=== PATIENT | male | born 1995 ===

== ENCOUNTER 2019-05-13 22:17 | Emergency (ER) | payer OTHER ==
[2019-05-14] MEDS ORDERED: predniSONE TAB* 20 MG PO ONE (02:04)
--- NOTE | 2019-05-14 02:07 | ED ---
Throat Pain/Nasal Congestion - HPI Summary HPI Summary: The patient is a 24 y/o M presenting to [facility] with a chief complaint of gradually worsening throat pain over the last week. He reports that he was seen at [facility], where he had a negative strep test but was given Ibuprofen. He has been taking the Ibuprofen, but he believes that is has been making his symptoms worse. He has also taken Mucinex and Chloroseptic to no relief. Today, he coughed, and there was blood in the phlegm, but he rinsed it with warm water , which seemed to help. He additionally c/o dysphagia. He denies fever. Currently, his symptoms are rated 1/10 in severity. No PMHx. Nonsmoker, rare EtOH, no substance use. Medications reviewed. Allergies noted. - History of Current Complaint Chief Complaint: EDThroatPain Time Seen by Provider: 05/14/19 01:59 Hx Obtained From: Patient Onset/Duration: Gradual Onset, Lasting Days - one week, Still Present Severity: Moderate Associated Signs And Symptoms: Positive: Dysphagia Cough: Other: - an episode of cough with blood - Allergies/Home Medications Allergies/Adverse Reactions: Allergies Allergy/AdvReac Type Severity Reaction Status Date / Time bacitracin Allergy Blisters Verified 05/13/19 22:25 [From Neosporin ([id number])] doxycycline Allergy Rash Verified 05/13/19 22:25 neomycin Allergy Blisters Verified 05/13/19 22:25 [From Neosporin ([id number])] polymyxin B Allergy Blisters Verified 05/13/19 22:25 [From Neosporin ([id number])] PMH/Surg Hx/FS Hx/Imm Hx Endocrine/Hematology History: Denies: Hx Diabetes Respiratory History: Denies: Hx Asthma Sensory History: Denies: Hx Legally Blind, Hx Deafness Opthamlomology History: Denies: Hx Legally Blind EENT History: Denies: Hx Deafness - Surgical History Surgical History: None Surgery Procedure, Year, and Place: none Infectious Disease History: No Infectious Disease History: Denies: Traveled Outside the [place] in Last 30 Days - Family History Known Family History: Negative: Renal Disease, Respiratory Disease - Social History Alcohol Use: Rare Hx Substance Use: No Substance Use Type: Reports: None Hx Tobacco Use: No Smoking Status (MU): Never Smoked Tobacco Review of Systems Negative: Fever Positive: Sore Throat, Other - dysphagia Positive: Cough - with blood Positive: Abdominal Pain All Other Systems Reviewed And Are Negative: Yes Physical Exam - Summary Physical Exam Summary: Appearance: Well-appearing, Well-nourished, lying in bed comfortably Skin: Warm, dry, no obvious rash Eyes: sclera anicteric, no conjunctival pallor ENT: mucous membranes moist, voice slightly muffled, marked bilateral and symmetric swelling of the tonsils, not quite "kissing" but quite swollen, does not have the appearance of peritonsillar abscess. Neck: Supple, nontender Respiratory: Clear to auscultation, no signs of respiratory distress or stridor Cardiovascular: Normal S1, S2. No murmurs. Normal distal pulses in tibial and radial bilaterally. Abdomen: Soft, nontender, normal active bowel sounds present Musculoskeletal: Normal, Strength/ROM Intact Neurological: A&Ox3, awake and alert, mentation is normal, speech is fluent and appropriate Psychiatric: affect is normal, does not appear anxious or depressed Triage Information Reviewed: Yes Vital Signs On Initial Exam: Initial Vitals Temp Pulse Resp BP Pulse Ox 98.5 F 131 18 136/90 98 05/13/19 22:22 05/13/19 22:22 05/13/19 22:22 05/13/19 22:22 05/13/19 22:22 Vital Signs Reviewed: Yes Diagnostics - Vital Signs Vital Signs Temp Pulse Resp BP Pulse Ox 05/13/19 22:22 98.5 F 131 18 136/90 98 - Laboratory Lab Results: Lab Results 05/14/19 Range/Units 00:08 Monoscreen Negative (Negative) Lab Statement: Any lab studies that have been ordered have been reviewed, and results considered in the medical decision making process. EENT Course/Dx - Course Course Of Treatment: Pt is a 24 y/o M with cc of gradually worsening sore throat accompanied by dysphagia and an episode of cough with blood today. Negative strep test at [facility] a few days ago. Upon physical exam, the pt exhibits a slightly muffled voice with marked bilateral and symmetric swelling of the tonsils. Monoscreen is negative. Kamilla calhoun ordered. Rapid strep is negative. In the ED course, the pt is administered first dose of course of Prednisone and Augmentin. We discussed plan for discharge with rx for Augmentin and Prednisone and follow up with Dr. Higginbotham. He understands and agrees with plan. Dx is pharyngitis. - Diagnoses Provider Diagnoses: Pharyngitis Discharge ED - Sign-Out/Discharge Documenting (check all that apply): Patient Departure - Patient will be discharged home. Patient Received Moderate/Deep Sedation with Procedure: No - Discharge Plan Condition: Good Disposition: HOME Prescriptions: Amoxicillin/Clavulanate TAB* [Augmentin TAB 875*] 875 mg PO BID #20 tab predniSONE TAB* [Deltasone 20 MG TAB*] 40 mg PO DAILY 5 Days #10 tab Patient Education Materials: Pharyngitis (ED) Referrals: Danny Higginbotham MD [Medical Doctor] - 2 Days (if not improving) - Billing Disposition and Condition Condition: GOOD Disposition: Home - Attestation Statements Document Initiated by Carlos: Yes Documenting Scribe: Maria Teresa Granger Provider For Whom Carlos is Documenting (Include Credential): Dr. Marcellus Osei MD Scribe Attestation: Maria Teresa Salcedo scribed for Dr. Marcellus Osei MD on 05/14/19 at 1845. Scribe Documentation Reviewed: Yes Provider Attestation: The documentation as recorded by the Maria Teresa stevenson accurately reflects the service I personally performed and the decisions made by me, Dr. Marcellus Osei MD Status of Scribe Document: Viewed
[2019-05-14] MEDS ORDERED: Amoxicillin/Clavulanate TAB* 875 MG PO ONE (02:12)
[2019-05-14 02:28] VITALS: BP 126/75
[2019-05-14 03:08] LABS: Rapid Strep Molecular Negative (Negative)
[2019-05-15 14:57] LABS: EBV Capsid Ag IgG Ab Negative (Negative); EBV Capsid Ag IgM Ab Positive (Negative); Epstein-Barr Nuclear Antigen Negative (Negative)
--- NOTE | 2019-05-17 08:39 | PN ---
Progress Note - Progress Note Date of Service: 05/15/19 Note: Called patient at 8:30am to make aware of his MONO/EBV results No answer Left message to call back
== END 2019-05-14 02:27 | disposition home or self-care (01) ==
LOC: ED 22:17
DX: J02.9 Acute pharyngitis, unspecified (principal); R13.10 Dysphagia, unspecified; R05 Cough; R10.9 Unspecified abdominal pain
CPT/HCPCS: 36415; 86308; 86664; 86665; 87651; 99282; A9270-GY; J7512